=== PATIENT | female | born 1965 | race Two or more races ===

== ENCOUNTER 2017-06-28 10:20 | Day surgery (SDC) | payer OTHER ==
[~2017-06-28] VITALS: Ht 162.6 cm; Wt 62.9 kg
[2017-06-28 09:55] VITALS: Ht 162.6 cm; Wt 62.9 kg
[2017-06-28 10:19] VITALS: BP 100/57; PULSE 59; RESP 18
[~2017-06-28 10:20] MED LIST: VITAMINS
--- NOTE | 2017-06-28 10:43 | OPPN ---
Date/Time of Note Date/Time of Note DATE: 06/28/17 TIME: 10:43 Operative Report Preoperative Diagnosis Screening Postoperative Diagnosis Internal hemorrhoids No colon neoplasm is identified Operation/Procedure Performed Colonoscopy Surgeon see signature line elementary assistant teacher None Anesthesia: moderate sedation Estimated blood loss: none Transfusion Required none Specimen None Grafts/Implants none Complications none LATA MARTINEZ MD Jun 28, 2017 10:43
--- NOTE | 2017-06-28 10:43 | OPPN ---
Date/Time of Note Date/Time of Note DATE: 06/28/17 TIME: 10:43 Operative Report Preoperative Diagnosis Screening Postoperative Diagnosis Internal hemorrhoids No colon neoplasm is identified Operation/Procedure Performed Colonoscopy Surgeon see signature line bilingual medical assistant None Anesthesia: moderate sedation Estimated blood loss: none Transfusion Required none Specimen None Grafts/Implants none Complications none LATA MARTINEZ MD Jun 28, 2017 10:43
--- NOTE | 2017-06-28 10:43 | OPPN ---
Date/Time of Note Date/Time of Note DATE: 06/28/17 TIME: 10:43 Operative Report Preoperative Diagnosis Screening Postoperative Diagnosis Internal hemorrhoids No colon neoplasm is identified Operation/Procedure Performed Colonoscopy Surgeon see signature line economist research assistant None Anesthesia: moderate sedation Estimated blood loss: none Transfusion Required none Specimen None Grafts/Implants none Complications none LATA MARTINEZ MD Jun 28, 2017 10:43
[2017-06-28] MEDS ORDERED: MIDAZOLAM 1 MG/ML 2 ML INJ ONE ×2 (10:45)
[2017-06-28] MEDS ORDERED: FENTAnyl 50 MCG/ML VIAL ONE (10:45)
[2017-06-28 11:10] VITALS: BP 86/53; PULSE 58; RESP 14
--- NOTE | 2017-06-29 05:20 | GILP ---
DATE OF PROCEDURE: NAME OF PROCEDURE: Colonoscopy. SURGEON: Lata Gardiner MD. PREOPERATIVE DIAGNOSIS: Screening colonoscopy. POSTOPERATIVE DIAGNOSES 1. Colonoscopy all the way to the cecum. 2. Internal hemorrhoids. 3. No colon neoplasm was identified. INDICATION FOR THE PROCEDURE: Ms. Stephanie Chen is a 51-year-old female patient who was scheduled for screening colonoscopy. The procedure and possible complications were well explained to the patient, she understood and cons ented to the procedure. DESCRIPTION OF PROCEDURE: Under the influence of fentanyl and Versed, the colonoscope was carefully introduced in the rectum and under direct vision, it was advanced all the way to the cecum. FINDINGS: The patient had internal hemorrhoids. No colon neoplasm was identified. She tolerated the procedure very well and there was no complication from the procedure. At the end of the procedures, she was awake with stable vital signs and she was discharged home to the care of her family. IMPRESSION: 1. Colonoscopy all the way to the cecum. 2. Internal hemorrhoids. 3. No colon neoplasm was identified. PLAN: Next screening colonoscopy in 10 years. Dictated By: LATA GOMEZ/CAREY Conf#: [id number] DID#: [id number]
== END 2017-06-28 10:56 | disposition home or self-care (01) ==
LOC: GIL 10:20
PROVIDERS: ATTEND Internal Medicine Gastroenterology
DX: Z12.11 Encounter for screening for malignant neoplasm of colon (principal); K64.8 Other hemorrhoids
CPT/HCPCS: 45378; 84703; J2250; J3010; Z7610